=== PATIENT | male | born 1975 | race Caucasian/White ===

== ENCOUNTER 2019-10-25 14:14 | Emergency (ER) | payer BC ==
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
--- NOTE | 2019-10-25 16:31 | CT Report ---
Reason: possible plateau fracture knee Procedure Date: 10/25/2019 Accession Number: [id number] / [id number] Procedure: CT - LOWER EXTREMITY WO - LT CPT Code: Final Report FULL RESULT: EXAM: LEFT KNEE CT WITHOUT CONTRAST EXAM DATE: 10/25/2019 04:11 PM. CLINICAL HISTORY: Possible plateau fracture knee. COMPARISON: KNEE 4 VIEW LT 10/25/2019 2:45 PM. TECHNIQUE: Thin-section axial images were acquired of the knee without contrast. Post-processing: Coronal and sagittal reformats. Other: None. In accordance with CT protocol optimization, one or more of the following dose reduction techniques were utilized for this exam: automated exposure control, adjustment of mA and/or KV based on patient size, or use of iterative reconstructive technique. FINDINGS: Bones: Comminuted minimally displaced fracture at the anterior aspect of the tibial spine. Also noted is an osteochondral impaction fracture of the posterior lateral tibial plateau corner. Series 3 image 124, series 6 image 83. No other fractures are seen. Joints: Lipohemarthrosis is noted. Moderate size joint effusion. Musculature: Normal. No fatty atrophy. Other: Small amounts of soft tissue gas are seen medially, presumed from soft tissue injury. IMPRESSION: 1. Comminuted minimally displaced fracture of the anterior aspect of the tibial spine. Also noted is an osteochondral impaction injury of the posterior lateral tibial plateau corner. These features are typically seen in patients with acute ACL tear secondary to a "pivot-shift" mechanism during injury. RADIA
[2019-10-25 18:03] VITALS: BP 155/88
== END 2019-10-25 17:00 | disposition home or self-care (01) ==
LOC: ED 14:14
DX: S93.492A Sprain of other ligament of left ankle, initial encounter (principal); S82.112A Displaced fracture of left tibial spine, initial encounter for closed fracture; V29.88XA Motorcycle rider (driver) (passenger) injured in other specified transport accidents, initial encounter; Y93.I9 Activity, other involving external motion
CPT/HCPCS: 20610

== ENCOUNTER 2020-01-22 10:14 | Emergency (ER) | payer BC ==
[2020-01-22] MEDS ORDERED: KETOROLAC 30 MG/ML VIAL IVP STA (10:36)
[2020-01-22] MEDS ORDERED: KETOROLAC 60 MG/2 ML VIAL IM STA (10:37)
--- NOTE | 2020-01-22 10:45 | ED Physician Documentation ---
History of Present Illness - Stated complaint Stated Complaint: RIB/BACK PX - Chief complaint Chief Complaint: Resp - History obtained from History obtained from: Patient - History of Present Illness Timing: How many days ago (2-3) Pain level max: 7 Pain level now: 5 - Additonal information Additional information: 44-year-old male presents the emergency department with left-sided sharp chest pain for the past several days. Worse with movement, better with rest. Worse with deep breathing as well. No recent surgery. No recent travel. He smokes approximately 1/2 pack/day. No leg or calf swelling. Does not use inhalers. Has had no fevers. No cough. No abdominal pain. No nausea. No vomiting Review of Systems Ten Systems: 10 systems reviewed and negative Constitutional: denies: Fever, Chills Nose: denies: Rhinorrhea / runny nose, Congestion Throat: denies: Sore throat Cardiac: reports: Chest pain / pressure (Sharp, nonradiating) Respiratory: denies: Dyspnea, Cough, Hemoptysis, Wheezing GI: denies: Abdominal Pain, Nausea, Vomiting : denies: Dysuria Skin: denies: Rash Musculoskeletal: denies: Neck pain, Back pain Neurologic: denies: Headache PD PAST MEDICAL HISTORY - Past Medical History Cardiovascular: None Respiratory: None Neuro: None Endocrine/Autoimmune: None GI: None : None HEENT: None Psych: Anxiety Musculoskeletal: None Derm: None - Past Surgical History Past Surgical History: No - Present Medications Home Medications: Ambulatory Orders Medication Instructions Recorded Confirmed Hydrocodone/Acetaminophen [[place] 1 each PO Q6H PRN #15 tablet 10/25/19 5-325 Tablet] Doxycycline Hyclate 100 mg PO BID #20 capsule 01/22/20 Hydrocodone/Acetaminophen 1 - 2 each PO Q6H PRN #14 tablet 01/22/20 [Hydrocodon-Acetaminophen 5-325] Ibuprofen [Motrin] 800 mg PO Q8H PRN #30 tablet 01/22/20 - Allergies Allergies/Adverse Reactions: Allergies Allergy/AdvReac Type Severity Reaction Status Date / Time No Known Drug Allergies Allergy Verified 01/22/20 10:29 - Social History Does the pt smoke?: No Smoking Status: Never smoker - Immunizations Immunizations are current?: Yes - POLST Patient has POLST: No PD ED PE NORMAL - Vitals Vital signs reviewed: Yes - General General: Alert and oriented X 3, No acute distress, Well developed/nourished - HEENT HEENT: Moist mucous membranes - Neck Neck: Supple, no meningeal sign - Cardiac Cardiac: RRR, Strong equal pulses - Respiratory Respiratory: No respiratory distress, Clear bilaterally - Abdomen Abdomen: Soft, Non tender, Non distended - Back Back: No CVA TTP, No spinal TTP - Derm Derm: Warm and dry, No rash - Extremities Extremities: No edema, No calf tenderness / cord - Neuro Neuro: Alert and oriented X 3 - Psych Psych: Normal mood, Normal affect - Free text exam Free text exam: No chest wall tenderness Results - Vitals Vitals: Vital Signs - 24 hr 01/22/20 01/22/20 01/22/20 10:23 10:56 12:56 Temperature 36.2 C L 37.0 C Heart Rate 99 83 91 Respiratory 20 16 20 Rate Blood Pressure 173/108 H 155/119 H 165/116 H O2 Saturation 93 94 93 01/22/20 13:06 Temperature 37 C Heart Rate 90 Respiratory 16 Rate Blood Pressure 155/98 H O2 Saturation 96 Oxygen O2 Source Room air - EKG (time done) 1051 Rate: Rate (enter#) (80) Rhythm: NSR [place]: Normal Intervals: Normal CO QRS: LVH Ischemia: Normal ST segments - Labs Labs: Laboratory Tests 01/22/20 01/22/20 01/22/20 11:14 11:14 11:14 WBC 10.2 RBC 5.22 Hgb 15.9 Hct 46.8 MCV 89.7 MCH 30.5 MCHC 34.0 RDW 12.9 Plt Count 295 MPV 9.0 Neut # (Auto) 7.6 H Lymph # (Auto) 1.4 L [place] # (Auto) 0.8 Eos # (Auto) 0.3 Baso # (Auto) 0.1 Absolute Nucleated RBC 0.00 Nucleated RBC % 0.0 Sodium 136 Potassium 4.4 Chloride 101 Carbon Dioxide 23 Anion Gap 12.0 BUN 12 Creatinine 0.8 Estimated GFR (MDRD) 105 Glucose 109 H Calcium 9.5 Total Bilirubin 1.2 H AST 21 ALT 23 Alkaline Phosphatase 82 Troponin I High Sens 4.1 B-Natriuretic Peptide Total Protein 8.2 Albumin 4.9 Globulin 3.3 Albumin/Globulin Ratio 1.5 Lipase 27 01/22/20 11:14 WBC RBC Hgb Hct MCV MCH MCHC RDW Plt Count MPV Neut # (Auto) Lymph # (Auto) [place] # (Auto) Eos # (Auto) Baso # (Auto) Absolute Nucleated RBC Nucleated RBC % Sodium Potassium Chloride Carbon Dioxide Anion Gap BUN Creatinine Estimated GFR (MDRD) Glucose Calcium Total Bilirubin AST ALT Alkaline Phosphatase Troponin I High Sens B-Natriuretic Peptide 19 Total Protein Albumin Globulin Albumin/Globulin Ratio Lipase - Rads (name of study) cxr Radiology: Prelim report reviewed, EMP read contemporaneously, See rad report (Left lower lobe/retrocardiac opacity is present suggestive of mild effusion. Underlying areas of atelectasis and/or pneumonia should be considered. ) CT chest Radiology: Prelim report reviewed, EMP read contemporaneously, See rad report (Mild left effusion with superimposed consolidation suggestive of pneumonia. Superimposed atelectasis cannot be excluded. Recommend interval follow-up to document resolution and exclude presence of underlying noninfectious/noninflammatory mass. ) PD MEDICAL DECISION MAKING - ED course Complexity details: reviewed results, re-evaluated patient, considered differential, d/w patient ED course: Patient with what appears to be pneumonia and a mild left pleural effusion. We will place on antibiotics and have him follow-up with his doctor for further care. No hypoxia. Recommend a repeat imaging in approximately 6 to 8 weeks. Patient is well-appearing, nontoxic. Afebrile. Patient counseled regarding signs and symptoms for which I believe and urgent re-evaluation would be necessary. Patient with good understanding of and agreement to plan and [facility] at this time This document was made in part using voice recognition software. While efforts are made to proofread this document, sound alike and grammatical errors may occur. Departure - Departure Disposition: 01 Home, Self Care Clinical Impression: Pleural effusion Pneumonia Qualifiers: Pneumonia type: due to unspecified organism Laterality: left Lung location: lower lobe of lung Qualified Code(s): J18.9 - Pneumonia, unspecified organism Condition: Good Instructions: ED Effusion Pleural, ED Pneumonia Adult Follow-Up: your,doctor in 1 week [Other] Prescriptions: Doxycycline Hyclate 100 mg PO BID #20 capsule Hydrocodone/Acetaminophen [Hydrocodon-Acetaminophen 5-325] 1 - 2 each PO Q6H PRN #14 tablet PRN Reason: pain Ibuprofen [Motrin] 800 mg PO Q8H PRN #30 tablet PRN Reason: PAIN &/OR FEVER Comments: Take all antibiotics until gone. Follow-up with your doctor in 1 to 2 weeks for a recheck. You should also have repeat imaging in approximately 6 to 8 weeks to exclude any underlying abnormalities of your lung such as malignancy. Your CT scan shows pneumonia with a pleural effusion, or fluid around the lung, today. Do not drink alcohol or drive while on narcotic pain medicine. Note that many narcotic pain relievers also contain tylenol/acetaminophen. Please ensure that your total dose of acetaminophen from all sources does not exceed 3 grams (3000mg) per day. You may constipated on this medication, take a stool softener such as "Colace" twice a day while you are on it. Also recommend a [id number] laxative such as senna or MiraLAX any day that you do not have a bowel movement. If you received narcotic pain medication in the emergency department, do not drive or operate machinery for the next 24 hours. Discharge Date/Time: 01/22/20 13:10
--- NOTE | 2020-01-22 10:55 | XRAY Report ---
PROCEDURE: Chest 2 View X-Ray INDICATIONS: sharp, L chest pain TECHNIQUE: 2 view(s) of the chest. COMPARISON: None. FINDINGS: Surgical changes and devices: None. Lungs and pleura: Left lower lobe/retrocardiac opacity is present. Mediastinum: Mediastinal contours are normal. Heart size is normal. Bones and chest wall: No suspicious bony abnormalities. Soft tissues appear unremarkable. IMPRESSION: Left lower lobe/retrocardiac opacity is present suggestive of mild effusion. Underlying areas of atelectasis and/or pneumonia should be considered. Reviewed by: Tess Shaikh MD on 01/22/2020 10:54 AM PDT Approved by: Tess Shaikh MD on 01/22/2020 10:54 AM PDT Station ID: [id number]
[2020-01-22 11:29] LABS: BASOPHILS # (AUTO) 0.1 10^3/uL (0.0-0.1); BASOPHILS % (AUTO) 0.5 %; EOSINOPHILS # (AUTO) 0.3 10^3/uL (0.0-0.7); EOSINOPHILS % (AUTO) 2.8 %; HGB - HEMOGLOBIN 15.9 g/dL (14.0-18.0); LYMPHOCYTES # (AUTO) 1.4 10^3/uL (1.5-3.5); LYMPHOCYTES % (AUTO) 14.1 %; MEAN CORPUSCULAR HEMOGLOBIN 30.5 pg (27.0-31.0); MEAN CORPUSCULAR VOLUME 89.7 fL (80.0-94.0); MONOCYTES # (AUTO) 0.8 10^3/uL (0.0-1.0); MONOCYTES % (AUTO) 7.8 %; NEUTROPHILS # (AUTO) 7.6 10^3/uL (1.5-6.6); NEUTROPHILS % (AUTO) 74.3 %; PLT - PLATELET COUNT 295 10^3/uL (130-450); RED BLOOD COUNT 5.22 10^6/uL (4.70-6.10); RED CELL DISTRIBUTION WIDTH 12.9 % (12.0-15.0); WHITE BLOOD COUNT 10.2 x10^3/uL (4.8-10.8)
[2020-01-22] MEDS ORDERED: IOVERSOL 320 100 ML VIAL IVP ONE ×2 (11:31→12:08)
[2020-01-22 11:41] LABS: ALBUMIN 4.9 g/dL (3.2-5.5); ALBUMIN/GLOBULIN RATIO 1.5 (1.0-2.2); BILIRUBIN,TOTAL 1.2 mg/dL (0.2-1.0); CALCIUM 9.5 mg/dL (8.5-10.3); CREATININE 0.8 mg/dL (0.6-1.2); TOTAL PROTEIN 8.2 g/dL (6.7-8.2)
--- NOTE | 2020-01-22 12:22 | CT Report ---
PROCEDURE: CHEST W INDICATIONS: L pleural effusion CONTRAST: IV CONTRAST: Optiray 320 ml: 100 PO CONTRAST: *NO PO CONTRAST TECHNIQUE: After the administration of intravenous contrast, 5 mm thick sections acquired from the pulmonary api sabrina to the posterior costophrenic angles. 7 mm thick coronal MIP reformats were acquired. For radia tion dose reduction, the following was used: automated exposure control, adjustment of mA and/or kV according to patient size. COMPARISON: Chest x-ray 01/22/2020 FINDINGS: Image quality: Excellent. Lungs and pleura: There is a mild left pleural effusion with superimposed consolidation. Dependent ch anges are present within the right base.. Mediastinum: Heart size is normal. No pericardial effusion. No mediastinal or hilar adenopathy by size criteria. Thoracic aorta and central pulmonary arteries are normal in size. Esophagus is philip l in caliber. No hiatal hernia. Bones and chest wall: No suspicious bony lesions. No vertebral body compression fractures. No axil clarence or supraclavicular adenopathy by size criteria. Thyroid gland is unremarkable. Abdomen: Visualized upper abdominal solid organs appear normal. Upper abdominal bowel loops are nor mal in caliber. IMPRESSION: 1. Mild left effusion with superimposed consolidation suggestive of pneumonia. Superimposed atelectas is cannot be excluded. Recommend interval follow-up to document resolution and exclude presence of un derlying noninfectious/noninflammatory mass. Reviewed by: Tess Shaikh MD on 01/22/2020 12:21 PM PDT Approved by: Tess Shaikh MD on 01/22/2020 12:21 PM PDT Station ID: [id number]
[2020-01-22] MEDS ORDERED: cefTRIAXone 1 GM VIAL IVP STA (12:38)
[2020-01-22 13:10] VITALS: BP 155/98
== END 2020-01-22 13:10 | disposition home or self-care (01) ==
LOC: ED 10:14
DX: J90 Pleural effusion, not elsewhere classified (principal); J18.9 Pneumonia, unspecified organism
CPT/HCPCS: 36415; 71046; 71260; 80053; 83690; 83880; 84484; 85025; 93005; 96372; 96374; 99284; Q9967